=== PATIENT | male | born 1930 | race Caucasian/White ===

== ENCOUNTER 2016-11-05 12:30 | Emergency (ER) | payer MEDICARE, BC ==
[~2016-11-05] VITALS: Ht 172.7 cm; Wt 90.0 kg
[2016-11-05 12:40] VITALS: BP 149/84
== END 2016-11-05 13:55 ==
LOC: ED 12:30
PROVIDERS: Emergency Medicine
DX: R53.1 Weakness (principal); D69.6 Thrombocytopenia, unspecified; I71.4 Abdominal aortic aneurysm, without rupture; R79.89 Other specified abnormal findings of blood chemistry; R94.31 Abnormal electrocardiogram [ECG] [EKG]

== ENCOUNTER 2016-11-11 10:06 | Inpatient (IN) | payer MEDICARE, BC ==
[~2016-11-11] VITALS: Ht 175.3 cm; Wt 73.3 kg
[2016-11-11 10:44] LABS: HEMATOCRIT 32.4 % (39.0-50.0); HEMOGLOBIN 10.3 g/dl (14.0-18.0); MEAN CORPUSCULAR HGB 29.3 pG CALC (26.0-32.0); MEAN CORPUSCULAR HGB CONC 31.8 g/L CALC (32.0-36.0); RED BLOOD COUNT 3.52 mill/uL (4.70-6.10); RED CELL DISTRI WIDTH 15.2 % (11.5-15.5)
[2016-11-11 10:56] LABS: IMMATURE GRANULOCYTES 10.1 % (0.0-1.0); NEUT# 10.33 thou/uL (1.82-7.42)
[2016-11-11 11:09] LABS: BILIRUBIN, TOTAL 1.4 mg/dL (0.0-1.4); CALCIUM 10.4 mg/dL (8.4-10.2); CREATININE 2.1 mg/dL (0.7-1.3); TOTAL PROTEIN 7.1 g/dL (6.3-8.2)
[2016-11-11 11:14] LABS: INTERNATIONAL NORMALIZED RATIO 1.1 RATIO (0.7-1.3); PROTHROMBIN TIME 11.9 SECONDS (9.0-12.5)
[2016-11-11 11:16] LABS: POTASSIUM 6.1 mmol/l (3.5-5.1)
[2016-11-11 12:03] LABS: URINE BLOOD DIPSTICK NEGATIVE (NEGATIVE); URINE CLARITY CLEAR; URINE GLUCOSE - DIPSTICK NEGATIVE (NEGATIVE); URINE KETONE TRACE mg/dL (NEGATIVE); URINE LEUK ESTERASE NEGATIVE (NEGATIVE); URINE NITRITE - DIPSTICK NEGATIVE (Negative); URINE PROTEIN - DIPSTICK NEGATIVE (NEG-TRACE); URINE SPECIFIC GRAVITY >=1.030; URINE UROBILINOGEN - DIPSTICK 0.2 E.U./dL (0.2)
[2016-11-11 12:10] LABS: URINE BILIRUBIN - DIPSTICK SMALL (NEGATIVE); URINE COLOR DK. YELLOW
[2016-11-11 14:06] LABS: POTASSIUM 5.1 mmol/l (3.5-5.1)
[2016-11-11 14:12] LABS: CREATININE 2.1 mg/dL (0.7-1.3)
[2016-11-11 15:19] VITALS: BP 85/55
[2016-11-11 15:29] VITALS: BP 85/55
== END 2016-11-11 16:20 | disposition expired | DRG 543 ==
LOC: ED 10:06 → ED-I 11:04 → ED 11:04 → ED-I 13:08 → ED 13:33 → MS2 13:34
PROVIDERS: Emergency Medicine; ADMIT Internal Medicine; ATTEND Internal Medicine
DX: C79.52 Secondary malignant neoplasm of bone marrow (principal); N17.9 Acute kidney failure, unspecified; E87.2 Acidosis; D69.59 Other secondary thrombocytopenia; E87.5 Hyperkalemia; C80.1 Malignant (primary) neoplasm, unspecified; R06.00 Dyspnea, unspecified; I10 Essential (primary) hypertension; G89.3 Neoplasm related pain (acute) (chronic); Z66 Do not resuscitate; Z51.5 Encounter for palliative care